=== PATIENT | female | born 1995 | race African-American/Black ===

== ENCOUNTER 2016-09-08 12:23 | Emergency (ER) | payer MEDICAID ==
[~2016-09-08 12:23] MED LIST: CLINDAMYCIN HC300 M2 PO; FOLIC ACID1 M1 PO; NO HOME MEDICATION XX; PRENATAL VITAM1 EAC5 PO; TOBRADEX EYE DRO5 M1 LEFT EAR
== END 2016-09-08 12:33 ==
LOC: EDMED 12:23
DX: Z32.02 Encounter for pregnancy test, result negative (principal); Z98.890 Other specified postprocedural states